=== PATIENT | male | born 1965 | race American Indian/Alaskan Native ===

== ENCOUNTER 2021-02-25 14:36 | Emergency (ER) | payer OTHER ==
--- NOTE | 2021-02-25 16:24 | Emergency Department Report ---
Chief Complaint: Abdominal Pain Stated Complaint: ABD PAIN - HPI History of Present Illness: 55-year-old -[place] male presents to the emergency room for abdominal pain that is been going on for 2 weeks. Patient states he has tried dcac-zuu-okynlkn Pepcid Complete and omeprazole with no relief. MSE screening note: Focused history and physical exam performed. Due to findings the following was ordered: 55-year-old -[place] male presents to the emergency room for abdominal pain that is been going on for 2 weeks. Patient states he has tried aadx-cpl-rbvdtet Pepcid Complete and omeprazole with no relief. ED Disposition for MSE Disposition: DC-07 LEFT AGAINST MED ADVICE Is pt being admited?: No Does the pt Need Aspirin: No Condition: Stable Instructions: Food Choices for Gastroesophageal Reflux Disease, Child, Mabr-mx-Fmka, Gastroesophageal Reflux Disease, Adult, Fglc-ue-Dtci Additional Instructions: Recommend iexd-gcx-ythduxf omeprazole 20 mg 2 tablets p.o. daily for the next 10 days. She can try roeo-gqi-grwbvxi Gaviscon complete which is a liquid and acid. Avoid spicy greasy foods. Do not sleep after eating for at least 3 hours. Elevate bed at a 30 degree angle. Referrals: [facility] [Provider Group] - 3-5 Days SERENA REYES MD [Staff Physician] - 3-5 Days CHRISTIN BRYANT MD [Staff Physician] - 3-5 Days Forms: AMA Form
== END 2021-02-25 16:30 | disposition left against medical advice (07) ==
LOC: ED 14:36
DX: R10.9 Unspecified abdominal pain (principal); Z88.0 Allergy status to penicillin
CPT/HCPCS: 99282